=== PATIENT | male | born 1975 | race Caucasian/White ===

== ENCOUNTER 2018-05-15 11:43 | Emergency (ER) | payer OTHER ==
[~2018-05-15] VITALS: Ht 185.4 cm; Wt 90.7 kg
[~2018-05-15 11:43] MED LIST: HYDROCODONE-IBU1 TAB PO; PERCOCET 5-3251 EACH PO
[2018-05-15] MEDS ORDERED: KEFLEX500 M1 PO (12:32)
[2018-05-15 12:40] VITALS: BP 145/76
== END 2018-05-15 12:41 | disposition home or self-care (01) ==
LOC: M.ERS 11:43
DX: S51.811A Laceration without foreign body of right forearm, initial encounter (principal); W19.XXXA Unspecified fall, initial encounter; Y93.89 Activity, other specified; Y92.89 Other specified places as the place of occurrence of the external cause; Y99.8 Other external cause status

== ENCOUNTER → 2019-05-02 | Outpatient (CLI) | payer OTHER ==
[~2019-05-02] MED LIST changes: +KEFLEX500 M1 PO
== END ==
LOC: M.ULTRA 07:30
DX: B19.20 Unspecified viral hepatitis C without hepatic coma (principal); K80.80 Other cholelithiasis without obstruction; R16.1 Splenomegaly, not elsewhere classified